=== PATIENT | female | born 1945 ===

== ENCOUNTER 2021-07-01 07:25 | Inpatient (IN) | payer MEDICARE, OTHER ==
[~2021-07-01] VITALS: Ht 170.2 cm; Wt 67.5 kg
[2021-07-01 08:06] LABS: Basophils # (auto) 0.1 10 ^3/uL (0-0.2); Basophils % (auto) 0.7 % (0.0-2.0); Eosinophils # (auto) 0.2 10 ^3/uL (0-0.8); Eosinophils % (auto) 2.3 % (0.0-7.0); Hemoglobin 14.1 g/dL (12.2-16.2); Lymphocytes % (auto) 20.7 % (10.0-50.0); Mean Corpuscular Hemoglobin 32.2 pg (28.0-32.0); Mean Corpuscular Hgb Conc. 33.4 g/dL (32.0-36.0); Mean Corpuscular Volume 96.5 fL (80.0-100.0); Monocytes # (auto) 0.8 10 ^3/uL (0-1.3); Monocytes % (auto) 7.7 % (0.0-12.0); Neutrophils # (auto) 6.8 10 ^3/uL (1.6-8.6); Neutrophils % (auto) 68.6 % (37.0-80.0); Red Blood Cells 4.36 10^6/uL (4.0-5.20); Red Cell Distribution Width 13.5 % (11.8-14.3); White Blood Cell 9.9 10^3/uL (4.4-10.8)
[2021-07-01 08:41] LABS: Albumin 3.3 g/dL (3.4-5.0); BUN/Creatinine Ratio 13.2; Calcium 8.5 mg/dL (8.5-10.1); Potassium 3.7 mmol/L (3.5-5.1)
[2021-07-01 08:44] LABS: Bilirubin, Total 0.4 mg/dL (0.2-1.0); Total Protein 7.7 g/dL (6.4-8.2)
[2021-07-01 08:54] LABS: Urine Bacteria FEW /hpf (None Seen); Urine Blood 2+ /uL (Negative); Urine Specific Gravity 1.006 (1.001-1.035); Urine WBC 74 /hpf (0 - 5)
[2021-07-01] MEDS ORDERED: cefTRIAXone 1GM/50ML D5W 50 ML IV ONE (14:45)
[2021-07-01] MEDS ORDERED: ACETAMINOPHEN 325 MG TAB PO ONE (15:15)
[2021-07-01] MEDS ORDERED: cefTRIAXone SOD 1,000 MG VL IM ONE (15:15)
[2021-07-01] MEDS ORDERED: DIPHENOXYLATE W/ATROPINE 2.5 MG TAB PO ONE (15:15)
[2021-07-01] MEDS ORDERED: NITROGLYCERIN 0.4 MG SL TAB SL PRN ×2 (16:00→23:00)
[2021-07-01] MEDS ORDERED: MORPHINE SULFATE INJECTION 2 MG/ML SYRG IV PRN ×3 (16:00→23:00)
[2021-07-01] MEDS ORDERED: metroNIDAZOLE 500MG/100ML 100 ML IV ONE (16:00)
[2021-07-01] MEDS ORDERED: ATOR40TA52 PO (18:06)
[2021-07-01] MEDS ORDERED: METO-289 PO (18:06)
[2021-07-01] MEDS ORDERED: POTA-180 PO (18:06)
[2021-07-01] MEDS ORDERED: FURO40TA4 PO (18:06)
[2021-07-01] MEDS ORDERED: OMEG100078 PO (18:06)
[2021-07-01] MEDS ORDERED: LOSA-69 PO (18:06)
[2021-07-01] MEDS ORDERED: LEVO50TA7 PO (18:06)
[2021-07-01] MEDS ORDERED: CARI100T PO (18:06)
[2021-07-01] MEDS ORDERED: AMLO-483 PO (18:06)
[2021-07-01] MEDS ORDERED: ASPI-498 PO (18:06)
[2021-07-01] MEDS ORDERED: MIRT-66 PO (18:06)
[2021-07-01] MEDS ORDERED: SERT50TA19 PO (18:06)
[2021-07-01] MEDS ORDERED: APIX5TAB PO (18:06)
[2021-07-01] MEDS ORDERED: MAGN400T40 PO (18:06)
[2021-07-01] MEDS ORDERED: LORA-483 PO (18:06)
[2021-07-01] MEDS ORDERED: CYAN1TAB11 PO (18:06)
[2021-07-01] MEDS ORDERED: TURM1TAB PO (18:06)
[2021-07-01] MEDS ORDERED: POM (18:06)
[2021-07-01] MEDS ORDERED: ACET-6 PO (18:06)
[2021-07-01] MEDS ORDERED: [UNRECOGNIZED DRUG - CODE] PO (18:06)
[2021-07-01] MEDS ORDERED: PROMETHAZINE HCL 25 MG/ML 1ML ONE (18:10)
[2021-07-01] MEDS ORDERED: PROMETHAZINE HCL 25 MG/ML 1ML IV PRN (18:15)
[2021-07-01] MEDS ORDERED: VANCOMYCIN HCL 125MG/5ML ORAL SOL GT SCH (22:00)
[2021-07-01] MEDS ORDERED: MEROPENEM 1GM IVPB 100 ML IV ONE (22:45)
[2021-07-01] MEDS ORDERED: VANCOMYCIN HCL 500MG/5ML ORAL SOL PO ONE (22:45)
[2021-07-01] MEDS ORDERED: LACTATED RINGER'S 1,000 ML IV ONE (22:45)
[2021-07-01] MEDS ORDERED: hydrALAZINE HCL 20 MG/ML VL IV PRN ×2 (22:45→23:00)
[2021-07-01] MEDS ORDERED: SODIUM CHLORIDE 0.9% 1,000 ML IV SCH (22:45)
[2021-07-01] MEDS ORDERED: ACETAMINOPHEN 325 MG TAB PO PRN (23:00)
[2021-07-01] MEDS ORDERED: ALUM & MAG HYDROX-SIMETH LIQ(MAALOX) 30 ML PO PRN (23:00)
[2021-07-01] MEDS ORDERED: HYDROcodone-ACET 5/325MG TAB PO PRN (23:00)
[2021-07-01] MEDS ORDERED: LORazepam 0.5 MG TAB PO PRN (23:00)
[2021-07-01] MEDS ORDERED: METOCLOPRAMIDE HCL 5MG/ml INJ 2ml VIAL IV PRN (23:00)
[2021-07-01] MEDS ORDERED: DOCUSATE SOD 100 MG CAP PO PRN (23:00)
[2021-07-01 23:22] LABS: Magnesium 2.4 mg/dL (1.6-2.6)
[2021-07-01 23:23] LABS: Alcohol, Urine < 3.0 mg/dL (0-10); Amphetamine Screen, Urine NEGATIVE (NEGATIVE); Barbiturate Scree,Urine NEGATIVE (NEGATIVE); Cannabinoid Screen, Urine POSITIVE (NEGATIVE); Cocaine Screen, Urine NEGATIVE (NEGATIVE); Opiate Scree,Urine NEGATIVE (NEGATIVE); Phencyclidine Screen, Urine NEGATIVE (NEGATIVE)
[2021-07-01 23:25] LABS: Phosphorus 2.5 mg/dL (2.5-4.90)
[2021-07-01 23:34] LABS: Benzodiazephine Screen, Urine NEGATIVE (NEGATIVE)
[2021-07-01 23:40] LABS: Cholesterol 98 mg/dL (< 200)
[2021-07-01 23:43] LABS: HDL Cholesterol 22 mg/dL (40-59); LDL Cholesterol 60 mg/dL (< 100); Triglycerides 111 mg/dL (< 150)
[2021-07-02 02:22] VITALS: BP 156/92
[2021-07-02] MEDS ORDERED: MEROPENEM 1GM IVPB 100 ML IV SCH (06:00)
[2021-07-02] MEDS: VANCOMYCIN HCL 500MG/5ML ORAL SOL PO SCH ×4 (06:27→22:48)
[2021-07-02] MEDS: LEVOTHYROXINE SODIUM 50 MCG TAB PO SCH (06:27)
[2021-07-02 09:00] VITALS: BP 143/73
[2021-07-02] MEDS: LOSARTAN POTASSIUM 50 MG TAB PO SCH (09:31)
[2021-07-02] MEDS: APIXABAN 5 MG TAB PO SCH ×2 (09:31→22:49)
[2021-07-02] MEDS: FLORASTOR (S. BOULARDII) 250 MG CAP PO SCH ×2 (09:31→22:49)
[2021-07-02 13:00] VITALS: BP 140/60
[2021-07-02] MEDS ORDERED: ERGOCALCIFEROL 50,000 UNIT(1.25MG) CAP PO SCH (13:15)
[2021-07-02] MEDS: CEFEPIME 1 GM in SODIUM CHL 0.9% 50 ML IV SCH ×2 (14:19→22:48)
[2021-07-02 17:00] VITALS: BP 145/74
[2021-07-02] MEDS: ASPirin-EC 81 mg tab PO SCH (17:52)
[2021-07-02] MEDS: SERTRALINE HCL 50 MG TAB PO SCH (17:53)
[2021-07-02] MEDS: MIRTAZAPINE 30 MG TAB PO SCH (17:54)
[2021-07-02] MEDS: METOPROLOL SUCCINATE XL 50 MG TAB PO SCH (17:55)
[2021-07-02 22:00] VITALS: BP 144/78
[2021-07-03 05:00] VITALS: BP 142/71
[2021-07-03 05:25] LABS: Basophils # (auto) 0.1 10 ^3/uL (0-0.2); Eosinophils # (auto) 0.2 10 ^3/uL (0-0.8); Eosinophils % (auto) 3.4 % (0.0-7.0); Hematocrit 40.2 % (36.0-46.0); Hemoglobin 13.4 g/dL (12.2-16.2); Lymphocytes % (auto) 33.8 % (10.0-50.0); Mean Corpuscular Hemoglobin 32.8 pg (28.0-32.0); Mean Corpuscular Hgb Conc. 33.4 g/dL (32.0-36.0); Mean Corpuscular Volume 98.1 fL (80.0-100.0); Monocytes # (auto) 0.6 10 ^3/uL (0-1.3); Monocytes % (auto) 10.7 % (0.0-12.0); Neutrophils # (auto) 3.1 10 ^3/uL (1.6-8.6); Neutrophils % (auto) 51.1 % (37.0-80.0); Nucleated Red Blood Cells % 0.1 %; Red Cell Distribution Width 13.9 % (11.8-14.3)
[2021-07-03 05:45] LABS: BUN/Creatinine Ratio 17.1; Calcium 8.6 mg/dL (8.5-10.1); Magnesium 2.3 mg/dL (1.6-2.6); Potassium 3.7 mmol/L (3.5-5.1)
[2021-07-03] MEDS: CEFEPIME 1 GM in SODIUM CHL 0.9% 50 ML IV SCH ×3 (06:00→22:28)
[2021-07-03] MEDS: VANCOMYCIN HCL 500MG/5ML ORAL SOL PO SCH ×2 (06:00→11:55)
[2021-07-03] MEDS: LEVOTHYROXINE SODIUM 50 MCG TAB PO SCH (06:29)
[2021-07-03 09:01] VITALS: BP 151/93
[2021-07-03] MEDS: APIXABAN 5 MG TAB PO SCH ×2 (09:30→22:01)
[2021-07-03] MEDS: FLORASTOR (S. BOULARDII) 250 MG CAP PO SCH ×2 (09:30→22:01)
[2021-07-03] MEDS: LOSARTAN POTASSIUM 50 MG TAB PO SCH (09:30)
[2021-07-03 13:00] VITALS: BP 140/70
[2021-07-03] MEDS: CHOLESTYRAMINE 4 GM POWDER PO SCH ×3 (13:09→22:01)
[2021-07-03 16:40] VITALS: BP 142/74
[2021-07-03] MEDS: ASPirin-EC 81 mg tab PO SCH (17:38)
[2021-07-03] MEDS: MIRTAZAPINE 30 MG TAB PO SCH (17:39)
[2021-07-03] MEDS: SERTRALINE HCL 50 MG TAB PO SCH (17:39)
[2021-07-03] MEDS: METOPROLOL SUCCINATE XL 50 MG TAB PO SCH (17:39)
[2021-07-03 22:00] VITALS: BP 142/82
[2021-07-04 05:00] VITALS: BP 154/87
[2021-07-04 05:17] LABS: Basophils # (auto) 0.1 10 ^3/uL (0-0.2); Basophils % (auto) 0.8 % (0.0-2.0); Eosinophils # (auto) 0.2 10 ^3/uL (0-0.8); Eosinophils % (auto) 3.2 % (0.0-7.0); Hematocrit 43.5 % (36.0-46.0); Hemoglobin 14.3 g/dL (12.2-16.2); Lymphocytes # (auto) 2.1 10 ^3/uL (0.4-5.4); Mean Corpuscular Hemoglobin 32.3 pg (28.0-32.0); Mean Corpuscular Hgb Conc. 32.9 g/dL (32.0-36.0); Mean Corpuscular Volume 98.2 fL (80.0-100.0); Monocytes # (auto) 0.8 10 ^3/uL (0-1.3); Monocytes % (auto) 10.9 % (0.0-12.0); Neutrophils # (auto) 3.8 10 ^3/uL (1.6-8.6); Neutrophils % (auto) 55.1 % (37.0-80.0); Nucleated Red Blood Cells % 0.1 %; Red Blood Cells 4.43 10^6/uL (4.0-5.20); Red Cell Distribution Width 13.4 % (11.8-14.3)
[2021-07-04 05:30] LABS: Potassium 3.6 mmol/L (3.5-5.1)
[2021-07-04 05:35] LABS: BUN/Creatinine Ratio 15.2; Bilirubin, Total 0.5 mg/dL (0.2-1.0); Calcium 8.9 mg/dL (8.5-10.1); Total Protein 6.9 g/dL (6.4-8.2)
[2021-07-04] MEDS: CEFEPIME 1 GM in SODIUM CHL 0.9% 50 ML IV SCH ×3 (06:00→22:07)
[2021-07-04] MEDS: CHOLESTYRAMINE 4 GM POWDER PO SCH (06:00)
[2021-07-04] MEDS: LEVOTHYROXINE SODIUM 50 MCG TAB PO SCH (07:09)
[2021-07-04 07:52] VITALS: BP 148/79
[2021-07-04] MEDS: LOSARTAN POTASSIUM 50 MG TAB PO SCH (09:30)
[2021-07-04] MEDS: FLORASTOR (S. BOULARDII) 250 MG CAP PO SCH ×2 (09:30→21:57)
[2021-07-04] MEDS: APIXABAN 5 MG TAB PO SCH ×2 (09:30→21:57)
[2021-07-04] MEDS ORDERED: ONDANSETRON HCL 4 MG/2 ML VIAL IV PRN (10:15)
[2021-07-04] MEDS: HYOSCYAMINE SULF 0.125 MG ODT TAB PO PRN ×2 (10:26→18:16)
[2021-07-04] MEDS: DIPHENOXYLATE W/ATROPINE 2.5 MG TAB PO PRN ×2 (10:27→22:12)
[2021-07-04 12:00] VITALS: BP 104/77
[2021-07-04 16:00] VITALS: BP 139/67
[2021-07-04] MEDS: METOPROLOL SUCCINATE XL 50 MG TAB PO SCH (17:34)
[2021-07-04] MEDS: MIRTAZAPINE 30 MG TAB PO SCH (17:37)
[2021-07-04] MEDS: ASPirin-EC 81 mg tab PO SCH (17:37)
[2021-07-04] MEDS: SERTRALINE HCL 50 MG TAB PO SCH (17:37)
[2021-07-05 05:20] LABS: Basophils # (auto) 0.1 10 ^3/uL (0-0.2); Basophils % (auto) 0.8 % (0.0-2.0); Eosinophils # (auto) 0.3 10 ^3/uL (0-0.8); Eosinophils % (auto) 3.6 % (0.0-7.0); Hematocrit 41.2 % (36.0-46.0); Lymphocytes # (auto) 2.5 10 ^3/uL (0.4-5.4); Lymphocytes % (auto) 34.7 % (10.0-50.0); Mean Corpuscular Hemoglobin 33.2 pg (28.0-32.0); Mean Corpuscular Volume 97.6 fL (80.0-100.0); Monocytes # (auto) 0.6 10 ^3/uL (0-1.3); Monocytes % (auto) 9.1 % (0.0-12.0); Neutrophils # (auto) 3.7 10 ^3/uL (1.6-8.6); Neutrophils % (auto) 51.8 % (37.0-80.0); Nucleated Red Blood Cells % 0.1 %; Red Blood Cells 4.23 10^6/uL (4.0-5.20); Red Cell Distribution Width 13.7 % (11.8-14.3); White Blood Cell 7.1 10^3/uL (4.4-10.8)
[2021-07-05 05:27] LABS: BUN/Creatinine Ratio 27.3; Calcium 8.8 mg/dL (8.5-10.1); Potassium 3.7 mmol/L (3.5-5.1)
[2021-07-05] MEDS: CEFEPIME 1 GM in SODIUM CHL 0.9% 50 ML IV SCH ×2 (06:00→09:35)
[2021-07-05] MEDS: LEVOTHYROXINE SODIUM 50 MCG TAB PO SCH (07:00)
[2021-07-05 09:00] VITALS: BP 116/74
[2021-07-05] MEDS: APIXABAN 5 MG TAB PO SCH (09:37)
[2021-07-05] MEDS: FLORASTOR (S. BOULARDII) 250 MG CAP PO SCH (09:37)
[2021-07-05] MEDS: LOSARTAN POTASSIUM 50 MG TAB PO SCH (09:37)
[2021-07-05 13:00] VITALS: BP 168/95
[2021-07-05 14:57] VITALS: BP 168/74
== END 2021-07-05 15:51 | disposition home or self-care (01) | DRG 690 ==
LOC: ER 07:25 → TELE 15:52 → TELE-CENTR 07-02 03:12
PROVIDERS: ADMIT Hospitalist; ATTEND Internal Medicine
DX: N30.00 Acute cystitis without hematuria (principal); I13.0 Hypertensive heart and chronic kidney disease with heart failure and stage 1 through stage 4 chronic kidney disease, or unspecified chronic kidney disease; D68.69 Other thrombophilia; A08.4 Viral intestinal infection, unspecified; E66.01 Morbid (severe) obesity due to excess calories; F32.9 Major depressive disorder, single episode, unspecified; I50.9 Heart failure, unspecified; E03.9 Hypothyroidism, unspecified; E78.5 Hyperlipidemia, unspecified; I48.91 Unspecified atrial fibrillation; N18.9 Chronic kidney disease, unspecified; Z66 Do not resuscitate; Z79.899 Other long term (current) drug therapy; R00.1 Bradycardia, unspecified; Z79.01 Long term (current) use of anticoagulants; Z80.0 Family history of malignant neoplasm of digestive organs; Z80.8 Family history of malignant neoplasm of other organs or systems; Z87.440 Personal history of urinary (tract) infections; Z68.23 Body mass index [BMI] 23.0-23.9, adult; Z82.49 Family history of ischemic heart disease and other diseases of the circulatory system; Z86.19 Personal history of other infectious and parasitic diseases; Z86.73 Personal history of transient ischemic attack (TIA), and cerebral infarction without residual deficits; Z90.710 Acquired absence of both cervix and uterus; Z88.7 Allergy status to serum and vaccine; Z90.49 Acquired absence of other specified parts of digestive tract; Z86.718 Personal history of other venous thrombosis and embolism
CPT/HCPCS: 36415; 70450; 71045; 74176; 80048; 80053; 80061; 80307; 81001; 82270; 82306; 83036; 83605; 83735; 83880; 84100; 84439; 84443; 84484; 85025; 87040; 87045; 87086; 87426; 87427; 87493; 93005; 93306; 96372; G0378; J0696; J2185; J3490